=== PATIENT | male | born 1980 | race Caucasian/White ===

== ENCOUNTER → 2023-09-28 15:44 | Outpatient (CLI) | payer BC, SELFPAY ==
--- NOTE | 2023-09-28 15:45 | ECG_ITS ---
APPROVED REPORT Exam: Resting ECG HR:64 bpm ECG Measurements Heart Rate 64 AXES ID 164 P 16 QRSd 93 QRS 42 QT 362 T 38 QTc 371 Conclusion SINUS RHYTHM NORMAL ECG UNCONFIRMED REPORT Electronically signed by : Derrell Fernandez MD 09/28/2023 17:08:49
--- NOTE | 2023-09-28 16:07 | XR_ITS ---
PROCEDURE INFORMATION: Exam: XR Chest Exam date and time: 09/28/2023 4:08 PM Age: 43 years old Clinical indication: Pre-operative exam; Respiratory screening exam; Additional info: Preoperative exam TECHNIQUE: Imaging protocol: Radiologic exam of the chest. Views: 2 views. COMPARISON: No relevant prior studies available. FINDINGS: Lungs: Lung rivera are aerated and clear. No infiltrates or overt CHF. Pleural spaces: Unremarkable. No pleural effusion. No pneumothorax. Heart/Mediastinum: Unremarkable. No cardiomegaly. Bones/joints: Unremarkable for age. IMPRESSION: Negative chest. No active disease.
[2023-09-28 16:15] LABS: Basophils # 0.1 K/mm3 (0-0.2); Eosinophils # 0.1 K/mm3 (0.0-0.4); Eosinophils % 1.6 % (0.1-12.0); Hematocrit 54.5 % (42.0-52.0); Lymphocytes # 2.2 K/mm3 (0.7-4.5); Lymphocytes % 35.7 % (10-50); Mean Corpuscular Hemoglobin 31.4 pg (27.0-31.2); Mean Corpuscular Volume 89.7 fl (80-94); Mean Platelet Volume 8.8 fl (7.4-10.4); Monocytes # 0.6 K/mm3 (0.1-1.0); Monocytes % 9.3 % (1.7-9.3); Neutrophils # 3.2 K/mm3 (1.8-7.8); Neutrophils % 52.5 % (37.0-80.0); Platelet Count 190 K/mm3 (142-424); Red Blood Count 6.07 M/mm3 (4.60-6.20); Red Cell Distribution Width 13.7 % (11.5-17.5)
[2023-09-28 16:19] LABS: Hemoglobin 19.1 g/dL (14.1-18.0)
[2023-09-28 17:09] LABS: Alanine Aminotransferase 53 U/L (12-78); Albumin Level 4.6 g/dl (3.5-5.0); Albumin/Globulin Ratio 1.8 (1.1-1.8); Alkaline Phosphatase 51 U/L (38-126); Anion Gap 13.4 mEq/L (5-15); Aspartate Amino Transferase 40 U/L (17-59); Bilirubin,Total 0.9 mg/dl (0.2-1.3); Blood Urea Nitrogen 14 mg/dl (9-20); Calcium 9.1 mg/dl (8.4-10.2); Carbon Dioxide 27 mmol/L (22.0-30.0); Chloride 102 mmol/L (98-107); Estimated Glomerular Filt Rate 73 ml/min (>60); GFR (African American) 89 ML/MIN (>60); Globulin 2.6 g/dL (1.3-3.2); Glucose 103 mg/dl (74-100); Potassium 4.4 mmoL/L (3.5-5.1); Sodium 138 mmol/L (136-145); Total Protein,Serum 7.2 g/dl (6.3-8.2)
== END ==
LOC: LAB 15:45
PROVIDERS: Visit Provider Podiatrist
DX: Z01.818 Encounter for other preprocedural examination (principal); M72.2 Plantar fascial fibromatosis; M79.671 Pain in right foot
CPT/HCPCS: 36415; 71046; 80053; 85025; 93005

== ENCOUNTER 2023-10-14 06:06 | Day surgery (SDC) | payer BC, SELFPAY ==
[2023-10-11 17:04] VITALS: BMI 36.6
[2023-10-14 06:49] VITALS: BP 124/65; PULSE 65; RESP 18; TEMP 36.7; O2SAT 97
[2023-10-14] MEDS: LACTATED RINGERS 1000ML 1,000 ML 25 ML IV (07:03)
--- NOTE | 2023-10-14 07:51 | P.PNANES_ITS ---
[facility] Disclaimer: The information contained in this section may have been updated after the patient was seen, as this information can be updated by other users. Medical History History of chronic hypertension History of gastroesophageal reflux (GERD) Kidney stone Surgical History History of extraction of renal calculus Hx laparoscopic cholecystectomy Family History Grandfather Cancer Grandfather Cancer Social History (Updated 10/14/23 @ 06:57 by Karyna Lee RN) Smoking Status: Never smoker alcohol intake: never substance use type: denies use current occupational status: employed Travel in the last 8 weeks: None marital status: [facility] Anesthesia Checklist Patient Identification Patient Identification: Arm Band Structural Data Admitted From: Home Planned Operative Procedure/s: Right Plantar Fascia Release, Spur Resection Consent for Planned Operative Procedure(s) Verified: Yes Verified Documents: Surgical Consent and History and Physical NPO Status Verified Time NPO: 00:00 Additional verifications Anesthesia Reactions: No Hx Blood Transfusions: No Blood Transfusion Reaction: No Airway Assessment Mallampati Score:: Class II C-Spine Mobility Assessed: Yes TMJ Mobility Assessed: Yes Dentition: Good Dentition Neurological Assessment Level of Consciousness: Awake and Alert Anesthesia Plan Anesthesia Risk discussed: Yes Anesthesia Plan: Verified ASA Class: II Anesthesia Type: MAC w/Block (Right Popliteal/Adductor Canal Nerve Block. Risks/benefits explained. Pt Verbalized understanding)
[2023-10-14 09:24] VITALS: BP 103/63; PULSE 91; RESP 17; O2SAT 95
[2023-10-14 09:34] VITALS: BP 136/82; PULSE 89; RESP 18; O2SAT 93
--- NOTE | 2023-10-14 09:43 | P.OP_ITS ---
Date of procedure: 10/14/23 Pre-op Diagnosis:: Plantar fasciitis right side, with inferior heel spur Post-op Diagnosis:: Same Procedure performed:: Plantar fascia release, with heel spur resection right foot Surgeon:: Gene Wilde DPM AMPLIFIER MECHANIC:: Dat Healy Anesthesia: MAC and other (Right popliteal) Estimated blood loss (mL): 2 Operative findings:: Expected taut plantar fascia; small inferior heel spur Operative note:: Patient was seen in preop holding area. Had a discussion with the patient and family about the planned surgical procedure. Patient was given opportunity to ask questions and all were answered to the patient's complete understanding and satisfaction. The patient is able to tell me that the plan is for a right sided plantar fascia release with possible heel spur resection; at that point I signed the patient's foot. Patient then wheeled into the operating room and transferred to the operating room table in the supine position. Patient was then sedated. And the patient already had a popliteal nerve block in the preop holding area by anesthesia department. Attention directed to the patient's right foot and ankle which was scrubbed prepped and draped by the circulating nurse. I inspected the foot and noted my initials on the dorsal aspect of the right foot as well as the marked planned incision site on the patient's medial heel. Esmarch bandage used to exsanguinate the patient's right foot and secured above the malleoli with a tourniquet inflated to 250 mmHg. A medial incision is made on the patient's right heel in line with the plantar fascia. Deep to subcutaneous tissues being careful preserve protect vital neurovascular structures. Minimal bleeding is noted and not necessary for cauterization. Tissue plane interval was created between the subcutaneous tissues and the deep fascia as well as between the deep fascia plantar fascia and the intrinsic musculature of the patient's right heel and foot. Sharp release of the plantar fascia was performed with scissors and a small wedge of plantar fascia was resected. Then dissected down to the heel spur attachment site and used osteotome with mallet to resect small inferior heel spur, which was then modified with rongeur and bone rasp. Release of the medial and central bands of the fascia was noted to be completed with the lateral band still intact. Irrigated with copious amounts of sterile normal saline. Decision to closed the wound with 2-0 Vicryl for the deeper subcutaneous tissues and then 2- 0 nylon in vertical in mattress suture technique was then performed. Dressed the wound with Xeroform gauze 4 x 4's soft roll. Released the tourniquet prompt hyperemic spots noted to all digits of the patient's right foot. Then applied a well-padded posterior splint with an outer elastic bandage holding the foot at 90 degrees to the lower leg. Patient tolerated the procedure and anesthesia well. Was sent to recovery/postop same-day surgery to go home the same day. Patient already has pain medication at home for other physical ailments that he uses as needed according to his other primary doctor doctor and specialists plans. He also has 800 mg ibuprofen on board and I wrote him for 12.5 mg Phenergan today. Patient will stay nonweightbearing for up to 4 to 6 weeks. He has access to crutches as well as a knee scooter. Patient already has his first and second week follow- ups in my [place] office already planned. Tourniquet time (min): 35 Condition: stable Disposition: same day Complications:: negative
[2023-10-14 09:48] VITALS: BP 117/79; PULSE 82; RESP 17; O2SAT 93
== END 2023-10-14 09:54 | disposition home or self-care (01) ==
PROVIDERS: Visit Provider Podiatrist
PROC: (CPT 28119; principal; 2023-10-14 07:30)
DX: M72.2 Plantar fascial fibromatosis (principal); M79.671 Pain in right foot; M77.31 Calcaneal spur, right foot
CPT/HCPCS: 28119; 96374